=== PATIENT | male | born 1985 | race Two or more races ===

== ENCOUNTER 2016-05-31 04:35 | Emergency (ER) | payer MEDICAID ==
[~2016-05-31] VITALS: Ht 177.8 cm; Wt 79.4 kg
[2016-05-31 08:00] VITALS: BP 110/62
== END 2016-05-31 08:20 | disposition home or self-care (01) ==
LOC: ER 04:37
DX: S61.230A Puncture wound without foreign body of right index finger without damage to nail, initial encounter (principal); Z88.0 Allergy status to penicillin; F17.210 Nicotine dependence, cigarettes, uncomplicated; W26.0XXA Contact with knife, initial encounter; Y93.89 Activity, other specified; Y92.099 Unspecified place in other non-institutional residence as the place of occurrence of the external cause
CPT/HCPCS: 73140

== ENCOUNTER 2019-06-21 01:24 | Emergency (ER) | payer SELFPAY ==
[~2019-06-21] VITALS: Ht 177.8 cm; Wt 90.7 kg
[2019-06-21 02:17] LABS: Urine WBC None Seen /hpf (0 - 3)
[2019-06-21 02:23] LABS: Eosinophils # (auto) 0.1 uL; Hemoglobin 14.6 g/dL (13.5-17.5); Lymphocytes # (auto) 1.4 uL; Mean Corpuscular Volume 65.6 fL (80.0-100.0); Monocytes # (auto) 0.6 uL; Monocytes % (auto) 8.6 % (0.0-12.0)
[2019-06-21 02:25] LABS: Basophils # (auto) 0 uL; Basophils % (auto) 0.7 % (0.0-2.0); Eosinophils % (auto) 1.7 % (0.0-7.0); Hematocrit 46.7 % (41.0-53.0); Lymphocytes % (auto) 18.4 % (10.0-50.0); Mean Corpuscular Hemoglobin 20.5 pg (28.0-32.0); Mean Corpuscular Hgb Conc. 31.3 g/dL (32.0-36.0); Neutrophils # (auto) 5.2 uL; Neutrophils % (auto) 70.6 % (37.0-80.0); Nucleated Red Blood Cells % 0.2 %; Platelet Count (auto) 207 10^3/uL (140-450); Red Blood Cells 7.11 10^6/uL (4.5-5.90); Red Cell Distribution Width 16.6 % (11.8-14.3); White Blood Cell 7.4 10^3/uL (4.4-10.8)
[2019-06-21 02:32] LABS: Urine Bacteria NONE SEEN /hpf (None Seen); Urine Blood Negative /uL (Negative); Urine Specific Gravity 1.004 (1.001-1.035)
[2019-06-21 02:38] LABS: INR 1.03 (0.9-1.15); Partial Thromboplastin Time 30.8 sec (23.64-32.05)
[2019-06-21 02:43] LABS: Alanine Aminotransferase 42 U/L (16-61); Albumin 3.7 g/dL (3.4-5.0); Anion Gap 5 (5-15); Aspartate Aminotransferase 16 U/L (15-37); BUN/Creatinine Ratio 8.8; Blood Urea Nitrogen 8 mg/dL (7-18); Calcium 8.5 mg/dL (8.5-10.1); Carbon Dioxide 27 mmol/L (21-32); Chloride 105 mmol/L (98-107); GFR African American 124 mL/min; GFR Non-African American 103 mL/min; Glucose 129 mg/dL (74-106); Potassium 3.2 mmol/L (3.5-5.1); Sodium 137 mmol/L (136-145)
[2019-06-21 02:45] LABS: Alcohol, Urine < 3.0 mg/dL (0-5); Amphetamine Screen, Urine NEGATIVE (NEGATIVE); Barbiturate Scree,Urine NEGATIVE (NEGATIVE); Benzodiazephine Screen, Urine NEGATIVE (NEGATIVE); Cannabinoid Screen, Urine NEGATIVE (NEGATIVE); Cocaine Screen, Urine NEGATIVE (NEGATIVE); Opiate Scree,Urine NEGATIVE (NEGATIVE); Phencyclidine Screen, Urine NEGATIVE (NEGATIVE)
[2019-06-21 02:46] LABS: Alkaline Phosphatase 64 U/L (45-117); Bilirubin, Total 0.5 mg/dL (0.2-1.0); Total Protein 7.4 g/dL (6.4-8.2)
[2019-06-21 06:46] VITALS: BP 120/73
== END 2019-06-21 07:04 | disposition home or self-care (01) ==
LOC: ER 01:26
DX: R42 Dizziness and giddiness (principal); F17.210 Nicotine dependence, cigarettes, uncomplicated; H53.8 Other visual disturbances; Z88.0 Allergy status to penicillin
CPT/HCPCS: 36415; 70450; 71045; 80053; 80307; 81001; 84484; 85025; 85610; 85730; 93005